=== PATIENT | female | born 1940 | race Caucasian/White ===

== ENCOUNTER 2018-10-24 18:37 | Emergency (ER) | payer MEDICARE, OTHER ==
[~2018-10-24] VITALS: Ht 172.7 cm; Wt 159.0 kg
[2018-10-24] MEDS ORDERED: gentamicin 40 MG/1 ML inj IV STA (21:01)
[2018-10-24] MEDS ORDERED: piperacillin/tazo 3.375gm/50ml 50 ML IV SCH (21:05)
[2018-10-24] MEDS ORDERED: glycopyrrolate 0.2mg/ml inj IV ONE (21:05)
[2018-10-24] MEDS ORDERED: NORMAL SALINE IV ONE (21:15)
[2018-10-24] MEDS ORDERED: GENTAMICIN IV ONE (21:15)
[2018-10-25 09:35] VITALS: BP 166/83
== END 2018-10-25 09:41 | disposition short-term general hospital (02) ==
LOC: ER 18:37
DX: L03.115 Cellulitis of right lower limb (principal); R60.0 Localized edema; E66.01 Morbid (severe) obesity due to excess calories; M19.90 Unspecified osteoarthritis, unspecified site; Z87.11 Personal history of peptic ulcer disease; Z98.890 Other specified postprocedural states; Z88.6 Allergy status to analgesic agent; Z88.1 Allergy status to other antibiotic agents; Z88.5 Allergy status to narcotic agent; Z79.01 Long term (current) use of anticoagulants
CPT/HCPCS: 93970; 96365; 96366; 96368; 96375; 99285; J1580; J2543; 99284; J3490; J7030